=== PATIENT | male | born 1985 | race Caucasian/White ===

== ENCOUNTER → 2018-07-09 12:32 | Day surgery (SDC) | payer OTHER ==
[~2018-07-09 12:32] MED LIST: Buffered Lidocaine 0.9% SYRIN* 5 ML/SYR SYRINGE INTRADERM ONE; Dexamethasone IV* 4 MG/ML 1 ML (4 MG) IV SLOW PU ONE; Dexamethasone IV* 4 MG/ML 1 ML (4 MG) ONE; DiMENhydriNATE IV* 50 MG/ML VIAL IV PUSH PRN; Famotidine IV* 10 MG/ML 2 ML (20 mg) IV ONE; Famotidine IV* 10 MG/ML 2 ML (20 mg) ONE; HYDROcodone/ACETAMIN 5-325 MG* 1 TAB ONE; Midazolam* 1 MG/ML 2 ML VIAL (2 MG) ONE; Naloxone* 0.4 MG/ML 1 ML VIAL IV PRN; Ropivacaine* 2 MG/ML 20 ML VIAL (0.2%) ONE; ceFAZolin 2 GM in NS PREMIX(*) 2 GM/100 ML BAG IVPB ONE; fentaNYL* 50 MCG/ML 2 ML VIAL (100 MCG VIAL) ONE
[2018-07-09] MEDS: fentaNYL* 50 MCG/ML 2 ML VIAL (100 MCG VIAL) IV PRN ×2 (17:46→17:55)
[2018-07-09 17:54] VITALS: BP 118/60
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
== END | disposition home or self-care (01) ==
LOC: OR 12:32
PROVIDERS: ATTEND Orthopaedic Surgery Hand Surgery
DX: S64.495A Injury of digital nerve of left ring finger, initial encounter (principal); S64.493A Injury of digital nerve of left middle finger, initial encounter; S66.125A Laceration of flexor muscle, fascia and tendon of left ring finger at wrist and hand level, initial encounter; Z72.0 Tobacco use; F31.9 Bipolar disorder, unspecified; W45.8XXA Other foreign body or object entering through skin, initial encounter; Y93.89 Activity, other specified; Y92.89 Other specified places as the place of occurrence of the external cause
CPT/HCPCS: C1713; J0690; J1100; J2250; J2795; J3010

== ENCOUNTER → 2018-08-21 03:26 | Emergency (ER) | payer OTHER ==
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
[2018-08-21 04:37] VITALS: BP 000/00
== END | disposition home or self-care (01) ==
LOC: ED 03:26
DX: M54.9 Dorsalgia, unspecified (principal); F41.9 Anxiety disorder, unspecified; Z87.891 Personal history of nicotine dependence
CPT/HCPCS: 99282